=== PATIENT | male | born 2000 | race African-American/Black ===

== ENCOUNTER 2019-07-31 23:55 | Emergency (ER) | payer OTHER ==
[~2019-07-31] VITALS: Ht 177.8 cm; Wt 79.4 kg
[~2019-07-31 23:55] MED LIST: HYDROCODONE-APA1 TA1 PO; KEFLEX500 MG PO
[2019-08-01 00:26] LABS: URINE BILIRUBIN NEGATIVE (Negative); URINE BLOOD NEGATIVE (Negative); URINE CLARITY CLEAR; URINE COLOR YELLOW; URINE GLUCOSE-RANDOM NEGATIVE (Negative); URINE KETONES NEGATIVE (Negative); URINE LEUKOCYTES-REFLEX 1+ (Negative); URINE NITRITE-REFLEX NEGATIVE (Negative); URINE PROTEIN NEGATIVE (Negative); URINE UROBILINOGEN 0.2 E.U./dl (0.2-1.0)
[2019-08-01 01:07] LABS: HYALINE CASTS 0-3 Few /LPF (None Seen); SQUAMOUS 0-3 Few /LPF (0-3)
[2019-08-01 01:08] LABS: BACTERIA-REFLEX 1-9 Few /HPF (None Seen); CRYSTALS None Seen /LPF (None Seen); URINE RBC None Seen /HPF (0-2)
[2019-08-01 03:28] VITALS: BP 98/55
--- NOTE | 2019-08-01 16:36 | EKG ---
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2000 Requested By: Keshia Licea Order Number: [id number] MD: Ortiz Shelton Measurements Intervals [place] Rate: 68 P: 48 WV: 158 QRS: 44 QRSD: 97 T: 10 QT: 406 QTc: 432 Interpretive Statements Sinus rhythm RSR' in V1 or V2, probably normal variant ST elev, probable normal early repol pattern No previous ECG available for comparison Electronically Signed On 08-01-2019 16:34:44 CDT by Ortiz Shelton [email or web address] <ELECTRONICALLY SIGNED> By: Ortiz Shelton MD, [facility] 08/01/19 1634 0108 0108 Ortiz Shelton MD, [facility] /EPI
== END 2019-08-01 05:30 | disposition home or self-care (01) ==
LOC: M.ERS 23:55
PROVIDERS: Emergency Medicine
DX: T39.1X1A Poisoning by 4-Aminophenol derivatives, accidental (unintentional), initial encounter (principal); Y92.89 Other specified places as the place of occurrence of the external cause